=== PATIENT | male | born 1940 | race Caucasian/White ===

== ENCOUNTER 2017-11-28 11:12 | Emergency (ER) | payer MEDICARE, OTHER ==
[~2017-11-28] VITALS: Ht 177.8 cm; Wt 83.9 kg
[~2017-11-28 11:12] MED LIST: ALEN70; ALEN70 PO; AMIT50; ASPI81CH PO; Augmentin 875-1 EACH PO; CARBAMAZEPINE200 M2 PO; CASCARA SAGRADA; CHOL10002; CILO100 PO; CLOP75 PO; DESV50 PO; DICL75ER PO; FISH1000; GABA300 PO; HYDACE5 PO; HYDCHL25; HYDMOR2 PO; HYDR1TAB94 PO; IBUP800 PO; LEVFLO500 PO; LISI10 PO; LISI5 PO; LORA.5 PO; LORA1 PO; LUPRON; LUPRON DEPOT; METO25 PO; MULVITMINF PO; NABU750; Norco 5-325 Ta1 EACH PO; OMEP20ER; OMEP20ER PO; PANT20 PO; RAME8 PO; ROPI1 PO; RXSULTRIDS PO; SERT100; SIMV10 PO; SULTRIDS PO; TOCO400; TOLT4; TRAM50 PO; ZOLP10 PO
[2017-11-28] MEDS ORDERED: Acetaminophen-1 EAC1 PO (13:27)
== END 2017-11-28 14:08 | disposition home or self-care (01) ==
LOC: ER 11:12
DX: S06.9X9A Unspecified intracranial injury with loss of consciousness of unspecified duration, initial encounter (principal); S16.1XXA Strain of muscle, fascia and tendon at neck level, initial encounter; S39.012A Strain of muscle, fascia and tendon of lower back, initial encounter; I10 Essential (primary) hypertension; Z79.899 Other long term (current) drug therapy; Z79.82 Long term (current) use of aspirin; W18.30XA Fall on same level, unspecified, initial encounter
CPT/HCPCS: 36415; 70450; 72100; 72125; 93005; 93010; 99284

== ENCOUNTER 2018-06-01 16:02 | Inpatient (IN) | payer MEDICARE, OTHER ==
[~2018-06-01] VITALS: Ht 167.6 cm; Wt 88.8 kg
[~2018-06-01 16:02] MED LIST changes: +Acetaminophen-1 EAC1 PO
[2018-06-01 16:42] LABS: BASOPHILS ABSOLUTE AUTO 0.03 K/mm3 (0.00-0.23); BASOPHILS PERCENT AUTO 0 % (0-2); EOSINOPHILS ABSOLUTE AUTO 0.08 K/mm3 (0.00-0.68); EOSINOPHILS PERCENT AUTO 1 % (0-6); Hemoglobin 12.1 g/dL (13.5-17.5); IMMATURE GRAN ABSOLUTE AUTO 0.03 K/mm3 (0.00-0.10); IMMATURE GRAN PERCENT AUTO 0 % (0-1); LYMPHOCYTES ABSOLUTE AUTO 1.83 K/mm3 (0.84-5.20); LYMPHOCYTES PERCENT AUTO 17 % (21-46); MONOCYTES PERCENT AUTO 10 % (4-13); Mean Corpuscular HGB 30.2 pg (26.0-34.0); Mean Corpuscular HGB Conc 32.7 g/dL (31.5-36.5); Mean Corpuscular Volume 92 fL (80-100); Mean Platelet Volume 9.1 fL (9.1-12.4); NEUTROPHILS ABSOLUTE AUTO 7.68 K/mm3 (1.96-9.15); NEUTROPHILS PERCENT AUTO 72 % (41-73); Platelet Count 283 K/mm3 (150-400); RDW Coefficient Variation 14.5 % (11.7-14.2); RDW Standard Deviation 48.7 fL (35.1-46.3); Red Blood Cell Count 4.01 M/mm3 (4.30-5.90); White Blood Cell Count 10.75 K/mm3 (4.00-11.30)
[2018-06-01] MEDS ORDERED: RAME8 PO (16:48)
[2018-06-01] MEDS ORDERED: METTREX2.5 PO (16:49)
[2018-06-01] MEDS ORDERED: GABA300 PO (16:49)
[2018-06-01] MEDS ORDERED: MELO7.5 PO (16:49)
[2018-06-01] MEDS ORDERED: PANT20 PO (16:49)
[2018-06-01 17:14] LABS: Alanine Aminotransfer (ALT/SGP 22 U/L (12-78); Albumin, Blood 2.5 g/dL (3.4-5.0); Albumin/Globulin Ratio 0.5 (0.8-1.8); Alk Phos 85 U/L (50-136); Anion Gap 13 mmol/L (6-16); Aspartate Aminotrans (AST/SGOT 27 U/L (12-37); Bilirubin, Total 0.6 mg/dL (0.1-1.0); Blood Urea Nitrogen 8 mg/dL (8-24); Bun/Creatinine Ratio 11.4 (12.0-20.0); CO2, Blood 22 mmol/L (21-32); Calcium, Blood 7.3 mg/dL (8.5-10.1); Chloride, Blood 97 mmol/L (98-108); Glomerular Filtration Rate >60 (60-); Glucose, Blood 76 mg/dL (70-99); Potassium, Blood 3.9 mmol/L (3.5-5.5); Sodium, Blood 132 mmol/L (136-145); Total Protein, Blood 7.5 g/dL (6.4-8.2)
[2018-06-01] MEDS ORDERED: HYDR1TAB94 PO (21:23)
[2018-06-01] MEDS ORDERED: FOLI1 PO (21:30)
[2018-06-02 05:45] LABS: Hematocrit 31.1 % (37.0-53.0); Mean Corpuscular HGB 29.9 pg (26.0-34.0); Mean Corpuscular HGB Conc 32.2 g/dL (31.5-36.5); Mean Corpuscular Volume 93 fL (80-100); Platelet Count 199 K/mm3 (150-400); RDW Coefficient Variation 14.4 % (11.7-14.2); RDW Standard Deviation 48.5 fL (35.1-46.3); Red Blood Cell Count 3.35 M/mm3 (4.30-5.90)
[2018-06-02 05:59] LABS: International Normalized Ratio 1.08; Prothrombin Time Results 11.1 Sec (9.7-11.5)
[2018-06-02 06:03] LABS: Alanine Aminotransfer (ALT/SGP 20 U/L (12-78); Albumin, Blood 2.2 g/dL (3.4-5.0); Albumin/Globulin Ratio 0.6 (0.8-1.8); Alk Phos 61 U/L (50-136); Anion Gap 7 mmol/L (6-16); Aspartate Aminotrans (AST/SGOT 17 U/L (12-37); Bilirubin, Total 0.4 mg/dL (0.1-1.0); Blood Urea Nitrogen 11 mg/dL (8-24); Bun/Creatinine Ratio 10.8 (12.0-20.0); CO2, Blood 29 mmol/L (21-32); Calcium, Blood 7.7 mg/dL (8.5-10.1); Chloride, Blood 103 mmol/L (98-108); Creatinine, Blood 1.02 mg/dL (0.60-1.20); Globulin, Blood 3.6 g/dL (2.2-4.0); Glomerular Filtration Rate >60 (60-); Glucose, Blood 114 mg/dL (70-99); Potassium, Blood 3.8 mmol/L (3.5-5.5); Sodium, Blood 139 mmol/L (136-145); Total Protein, Blood 5.8 g/dL (6.4-8.2)
== END 2018-06-03 18:14 | disposition home or self-care (01) | DRG 392 ==
LOC: ER 16:02 → SURS 19:26
PROVIDERS: Nurse Practitioner Acute Care; Physician Assistant
DX: R10.31 Right lower quadrant pain (principal); E87.1 Hypo-osmolality and hyponatremia; C79.51 Secondary malignant neoplasm of bone; I25.10 Atherosclerotic heart disease of native coronary artery without angina pectoris; M06.9 Rheumatoid arthritis, unspecified; G25.81 Restless legs syndrome; I73.9 Peripheral vascular disease, unspecified; I10 Essential (primary) hypertension; K21.9 Gastro-esophageal reflux disease without esophagitis; Z95.5 Presence of coronary angioplasty implant and graft; E78.5 Hyperlipidemia, unspecified; Z85.46 Personal history of malignant neoplasm of prostate; R93.5 Abnormal findings on diagnostic imaging of other abdominal regions, including retroperitoneum
CPT/HCPCS: 36415; 80053; 83690; 85025; 85027; 85610; 93306; 96361; 96365; 96375; 96376; 99284-25; C9113; J0295; J1815; J2405; J2550; J7030; J7120

== ENCOUNTER 2018-06-08 09:18 | Day surgery (SDC) | payer MEDICARE, OTHER ==
[~2018-06-08] VITALS: Ht 167.6 cm; Wt 78.9 kg
[~2018-06-08 09:18] MED LIST changes: +FOLI1 PO; +MELO7.5 PO; +METTREX2.5 PO
[2018-07-07] MEDS ORDERED: Mobic15 MG PO (15:26)
[2018-07-07] MEDS ORDERED: BUDE.25 (15:26)
== END 2018-06-08 12:24 | disposition home or self-care (01) ==
LOC: ORSCSDS 09:18
PROVIDERS: Internal Medicine Gastroenterology
PROC: 0DBK8ZX Excision of Ascending Colon, Via Natural or Artificial Opening Endoscopic, Diagnostic (ICD-10-PCS; principal; 2018-06-08 11:15)
PROC: 0DBH8ZX Excision of Cecum, Via Natural or Artificial Opening Endoscopic, Diagnostic (ICD-10-PCS; principal; 2018-06-08 11:15)
PROC: 0DBP8ZX Excision of Rectum, Via Natural or Artificial Opening Endoscopic, Diagnostic (ICD-10-PCS; principal; 2018-06-08 11:15)
PROC: 0DBM8ZX Excision of Descending Colon, Via Natural or Artificial Opening Endoscopic, Diagnostic (ICD-10-PCS; principal; 2018-06-08 11:15)
DX: R93.5 Abnormal findings on diagnostic imaging of other abdominal regions, including retroperitoneum (principal); K92.1 Melena; C18.0 Malignant neoplasm of cecum; D12.4 Benign neoplasm of descending colon; K62.1 Rectal polyp; K64.8 Other hemorrhoids; R63.4 Abnormal weight loss; I10 Essential (primary) hypertension; I48.91 Unspecified atrial fibrillation; I25.2 Old myocardial infarction; G47.33 Obstructive sleep apnea (adult) (pediatric); Z79.899 Other long term (current) drug therapy; Z79.82 Long term (current) use of aspirin
CPT/HCPCS: 88305; J7120

== ENCOUNTER 2018-07-08 10:36 | Inpatient (IN) | payer MEDICARE, OTHER ==
[~2018-07-08] VITALS: Ht 167.6 cm; Wt 84.0 kg
[~2018-07-08 10:36] MED LIST changes: +BUDE.25; +Mobic15 MG PO
--- NOTE | 2018-07-13 07:10 | NUR ---
Ambulatory in Day Surgery History, Chart, Medications and Allergies reviewed before start of procedure.Patient confirms NPO status and agrees with scheduled surgery. Patient states colon prep results clear.PT DID NOT TAKE METOPROLOL THIS AM, LAST DOSE YESTERDAY. Patient reports completing Chlorhexadine shower X2 prior to admission to hospital.Surgical site prepped with 2% Chlorhexidine cloth wipe.
--- NOTE | 2018-07-13 13:22 | NUR ---
07/13/18 1322 Nicholas Douglas COUNT OFF BY ONE. ROOM SEARCHED. XRAY TAKEN. READ ALL CLEAR BY DR. ZAVALA RADIOLOGIST. ADRY FOUND PRIOR TO LEAVING ROOM.
[2018-07-14 04:22] LABS: BASOPHILS ABSOLUTE AUTO 0.02 K/mm3 (0.00-0.23); BASOPHILS PERCENT AUTO 0 % (0-2); EOSINOPHILS PERCENT AUTO 0 % (0-6); Hematocrit 30.8 % (37.0-53.0); IMMATURE GRAN ABSOLUTE AUTO 0.03 K/mm3 (0.00-0.10); IMMATURE GRAN PERCENT AUTO 0 % (0-1); LYMPHOCYTES ABSOLUTE AUTO 0.98 K/mm3 (0.84-5.20); LYMPHOCYTES PERCENT AUTO 10 % (21-46); MONOCYTES ABSOLUTE AUTO 0.77 K/mm3 (0.16-1.47); MONOCYTES PERCENT AUTO 8 % (4-13); Mean Corpuscular HGB 29.8 pg (26.0-34.0); Mean Corpuscular HGB Conc 32.5 g/dL (31.5-36.5); Mean Corpuscular Volume 92 fL (80-100); Mean Platelet Volume 8.5 fL (9.1-12.4); NEUTROPHILS ABSOLUTE AUTO 7.63 K/mm3 (1.96-9.15); NEUTROPHILS PERCENT AUTO 81 % (41-73); Platelet Count 196 K/mm3 (150-400); RDW Coefficient Variation 14.3 % (11.7-14.2); RDW Standard Deviation 47.4 fL (35.1-46.3); Red Blood Cell Count 3.36 M/mm3 (4.30-5.90); White Blood Cell Count 9.43 K/mm3 (4.00-11.30)
[2018-07-14 04:40] LABS: Anion Gap 4 mmol/L (6-16); Blood Urea Nitrogen 12 mg/dL (8-24); Bun/Creatinine Ratio 13.6 (12.0-20.0); CO2, Blood 29 mmol/L (21-32); Chloride, Blood 106 mmol/L (98-108); Creatinine, Blood 0.88 mg/dL (0.60-1.20); Glomerular Filtration Rate >60 (60-); Glucose, Blood 127 mg/dL (70-99); Potassium, Blood 4.8 mmol/L (3.5-5.5); Sodium, Blood 139 mmol/L (136-145)
--- NOTE | 2018-07-14 06:47 | NUR ---
SUMMARY PT WITH NO ACUTE CHANGES TONIGHT. MEDICATED PO FOR PAIN. CHRISTELLE REMAINS PATENT. NO NEW DRNG TO ABD DRSNGS.
--- NOTE | 2018-07-14 14:51 | NUR ---
Patient was in bed and alert with and son present in the room when I entered the patient's room. I introduced myself and was welcomed into their conversation. Patient told me of his many health battles, of the family struggles and the currnet concerns about the biopsy from the recent surgery. I conducted a life review, explored patient's belief system, reinforced helpful attitudes and practices, provided anxiety containment and provided prayer. Patient and family responded well to all interventios and displayed evidence of restored loco and elevated mood. Patient and family expressed gratitude for the time and care.
--- NOTE | 2018-07-14 18:05 | NUR ---
SUMMARY NO ACUTE CHANGES T/O SHIFT. PT TOLERATING REGULAR DIET. AMBULATED IN [facility] W/FWW. MEDICATED PER ORDERS FOR PAIN; PAIN WELL CONTROLLED PER EMAR. PLEASANT AND COOPERATIVE.
--- NOTE | 2018-07-14 22:00 | NUR ---
PT WITH NAUSEA ON ASSESS WHICH I TREATED WITH ZOFRAN IV PER ORDERS. PT HAD EMESIS X 1 OF APPEARING UNDIGESTED FOOD. ABD IS INCREASINGLY DISTENDED WITH PT REPORTED MINIMAL FLATUS PASSING AND NO BM. I CALLED DR ENGLAND AND RECEIVED ORDERS FOR NPO AND RESUME LR @ 75 ML/HR.
[2018-07-15 06:54] LABS: BASOPHILS ABSOLUTE AUTO 0.04 K/mm3 (0.00-0.23); BASOPHILS PERCENT AUTO 0 % (0-2); EOSINOPHILS ABSOLUTE AUTO 0.01 K/mm3 (0.00-0.68); EOSINOPHILS PERCENT AUTO 0 % (0-6); Hematocrit 39.6 % (37.0-53.0); IMMATURE GRAN ABSOLUTE AUTO 0.05 K/mm3 (0.00-0.10); IMMATURE GRAN PERCENT AUTO 0 % (0-1); LYMPHOCYTES ABSOLUTE AUTO 1.44 K/mm3 (0.84-5.20); LYMPHOCYTES PERCENT AUTO 11 % (21-46); MONOCYTES ABSOLUTE AUTO 0.86 K/mm3 (0.16-1.47); MONOCYTES PERCENT AUTO 7 % (4-13); Mean Corpuscular HGB Conc 32.8 g/dL (31.5-36.5); Mean Corpuscular Volume 91 fL (80-100); Mean Platelet Volume 8.7 fL (9.1-12.4); NEUTROPHILS ABSOLUTE AUTO 10.51 K/mm3 (1.96-9.15); NEUTROPHILS PERCENT AUTO 81 % (41-73); Platelet Count 273 K/mm3 (150-400); RDW Coefficient Variation 14.7 % (11.7-14.2); RDW Standard Deviation 48.8 fL (35.1-46.3); Red Blood Cell Count 4.34 M/mm3 (4.30-5.90); White Blood Cell Count 12.91 K/mm3 (4.00-11.30)
[2018-07-15 07:43] LABS: Anion Gap 7 mmol/L (6-16); Blood Urea Nitrogen 10 mg/dL (8-24); Bun/Creatinine Ratio 9.7 (12.0-20.0); CO2, Blood 30 mmol/L (21-32); Calcium, Blood 8.3 mg/dL (8.5-10.1); Chloride, Blood 101 mmol/L (98-108); Creatinine, Blood 1.03 mg/dL (0.60-1.20); Glomerular Filtration Rate >60 (60-); Glucose, Blood 150 mg/dL (70-99); Potassium, Blood 4.2 mmol/L (3.5-5.5); Sodium, Blood 138 mmol/L (136-145)
--- NOTE | 2018-07-15 08:40 | NUR ---
pt back from imaging
--- NOTE | 2018-07-15 11:36 | NUR ---
NG TUBE PLACEMENT PLACED 18F NG TUBE TO L NARES. AWAITING XR CONFIRMATION OF PLACEMENT. PT TOLERATED FAIR.
--- NOTE | 2018-07-15 17:35 | NUR ---
SUMMARY PT HAD NAUSEA AND EMESIS THIS AM. ABD CT SHOWED POSITIVE FOR ILEUS. 18F NG PLACED TO L NARES PER ORDERS. DRAINING DARK BROWN FLUID TO LIS. PT HAS DENIED NEED FOR PAIN MEDICATION. DECLINED ZOFRAN T/O SHIFT. PT C/O OF REFLUX THIS AFTERNOON. OBTAINED ORDERS FOR IV PROTONIX AND ADMINISTERED PER ORDERS. PT REPORTS NAUSEA AND REFLUX IMPROVED. IV FLUIDS INFUSING. BOURGEOIS DRAINING BRIGHT YELLOW FLUID. CALL LIGHT IN REACH.
[2018-07-16 04:10] LABS: BASOPHILS ABSOLUTE AUTO 0.03 K/mm3 (0.00-0.23); BASOPHILS PERCENT AUTO 0 % (0-2); EOSINOPHILS ABSOLUTE AUTO 0.04 K/mm3 (0.00-0.68); EOSINOPHILS PERCENT AUTO 0 % (0-6); Hematocrit 35.8 % (37.0-53.0); Hemoglobin 11.7 g/dL (13.5-17.5); IMMATURE GRAN ABSOLUTE AUTO 0.03 K/mm3 (0.00-0.10); IMMATURE GRAN PERCENT AUTO 0 % (0-1); LYMPHOCYTES ABSOLUTE AUTO 1.02 K/mm3 (0.84-5.20); LYMPHOCYTES PERCENT AUTO 10 % (21-46); MONOCYTES ABSOLUTE AUTO 0.83 K/mm3 (0.16-1.47); MONOCYTES PERCENT AUTO 8 % (4-13); Mean Corpuscular HGB 30.2 pg (26.0-34.0); Mean Corpuscular HGB Conc 32.7 g/dL (31.5-36.5); Mean Corpuscular Volume 92 fL (80-100); Mean Platelet Volume 8.9 fL (9.1-12.4); NEUTROPHILS ABSOLUTE AUTO 8.75 K/mm3 (1.96-9.15); NEUTROPHILS PERCENT AUTO 82 % (41-73); Platelet Count 233 K/mm3 (150-400); RDW Standard Deviation 50.2 fL (35.1-46.3); Red Blood Cell Count 3.88 M/mm3 (4.30-5.90)
[2018-07-16 04:32] LABS: Anion Gap 4 mmol/L (6-16); Blood Urea Nitrogen 11 mg/dL (8-24); Bun/Creatinine Ratio 11.6 (12.0-20.0); CO2, Blood 32 mmol/L (21-32); Calcium, Blood 8.1 mg/dL (8.5-10.1); Chloride, Blood 103 mmol/L (98-108); Creatinine, Blood 0.95 mg/dL (0.60-1.20); Glomerular Filtration Rate >60 (60-); Glucose, Blood 150 mg/dL (70-99); Magnesium, Blood 1.8 mg/dL (1.6-2.4); Phosphorus, Blood 3.6 mg/dL (2.5-4.9); Potassium, Blood 4.6 mmol/L (3.5-5.5); Sodium, Blood 139 mmol/L (136-145)
--- NOTE | 2018-07-16 04:50 | NUR ---
SHIFT SUMMARY PT A&O X4 T/O SHIFT. POD# 3 R HEMICOLECTOMY; DRESSINGS DRY AND INTACT; DRAINAGE TO UMBILICAL SITE UNCHANGES OVER SHIFT; ABD SOFT; BT X4; PT DENIES NAUSEA. NG SUCTION PER ORDERS, DARK BROWN OUTPUT. PT STS PAIN AT COMFORTABLE LEVEL; PT AWARE PAIN MEDICATION AVAILABLE WHEN DESIRED. PT REPOSITIONED T/O SHIFT. LS DIM IN BASES BILAT, O2 VIA NC. TELEMETRY IN PLACE; PER MONITOR SINUS AT RATE OF 80-LOW 100'S SCD'S TO BLE'S; PT DENIES CP AND SOB. BOURGEOIS PATENT. NPO WITH ORAL SPONGE AND ICE CHIPS BEDSIDE. CALL LIGHT IN REACH. WCTM UNTIL REPORT TO DAY SHIFT RN.
--- NOTE | 2018-07-16 18:19 | NUR ---
SHIFT SUMMARY POD 3 LAP COLECTOMY. LAP SITES C/D/I. NG TUBE WITH SCANT AMOUNT OF BROWN DRAINAGE-20ML. DENIES ANY NAUSEA THIS SHIFT. PAIN 2/10 MOST OF SHIFT, DECLINES PAIN MEDICATION. UP TO SIDE OF BED. REPORTS PASSING FLATUS. PLAN IS TO DC NG TUBE IN AM IF PT CONTINUES PASSING FLATUS AND HAS NO INCREASED DRAINAGE.
[2018-07-17 04:44] LABS: BASOPHILS ABSOLUTE AUTO 0.03 K/mm3 (0.00-0.23); BASOPHILS PERCENT AUTO 1 % (0-2); EOSINOPHILS ABSOLUTE AUTO 0.26 K/mm3 (0.00-0.68); EOSINOPHILS PERCENT AUTO 4 % (0-6); Hematocrit 31.8 % (37.0-53.0); Hemoglobin 10.1 g/dL (13.5-17.5); IMMATURE GRAN ABSOLUTE AUTO 0.01 K/mm3 (0.00-0.10); IMMATURE GRAN PERCENT AUTO 0 % (0-1); LYMPHOCYTES ABSOLUTE AUTO 1.06 K/mm3 (0.84-5.20); LYMPHOCYTES PERCENT AUTO 18 % (21-46); MONOCYTES ABSOLUTE AUTO 0.61 K/mm3 (0.16-1.47); MONOCYTES PERCENT AUTO 10 % (4-13); Mean Corpuscular HGB 29.6 pg (26.0-34.0); Mean Corpuscular HGB Conc 31.8 g/dL (31.5-36.5); Mean Corpuscular Volume 93 fL (80-100); Mean Platelet Volume 8.8 fL (9.1-12.4); NEUTROPHILS ABSOLUTE AUTO 4.03 K/mm3 (1.96-9.15); NEUTROPHILS PERCENT AUTO 67 % (41-73); Platelet Count 178 K/mm3 (150-400); RDW Coefficient Variation 14.8 % (11.7-14.2); RDW Standard Deviation 50.4 fL (35.1-46.3); Red Blood Cell Count 3.41 M/mm3 (4.30-5.90)
[2018-07-17 04:58] LABS: Anion Gap 4 mmol/L (6-16); Blood Urea Nitrogen 13 mg/dL (8-24); Bun/Creatinine Ratio 13.9 (12.0-20.0); CO2, Blood 32 mmol/L (21-32); Calcium, Blood 7.8 mg/dL (8.5-10.1); Chloride, Blood 105 mmol/L (98-108); Creatinine, Blood 0.93 mg/dL (0.60-1.20); Glomerular Filtration Rate >60 (60-); Glucose, Blood 102 mg/dL (70-99); Potassium, Blood 4.6 mmol/L (3.5-5.5); Sodium, Blood 141 mmol/L (136-145)
--- NOTE | 2018-07-17 07:33 | NUR ---
SHIFT SUMMARY PT A&O X4 T/O SHIFT. NG TO LOW INTERMIT SUCTION; BROWN OUTPUT SCANT, UNMEASURABLE. PT NPO, ICE CHIPS AT BEDSIDE. PT DENIES NAUSEA, ABD SOFT, BT X4; ABD SURG SITES CDI, OPEN TO AIR. PT ASSISTED WITH REPOSITIONING PRN. SCD'S TO BLE'S. PAIN MANGED PER EMAR. O2 VIA NC WEANED TO 0.5L; PT DENIES SOB AND CP. TELEMETRY IN PLACE; SR PER RETAIL LEASING AGENT. BOURGEOIS PATENT AND DRAINING WELL. CALL LIGHT IN REACH; PT DEMONSTRATES USE. REPORT GIVEN TO DAY SHIFT RN.
[2018-07-18 04:12] LABS: BASOPHILS ABSOLUTE AUTO 0.04 K/mm3 (0.00-0.23); BASOPHILS PERCENT AUTO 1 % (0-2); EOSINOPHILS ABSOLUTE AUTO 0.18 K/mm3 (0.00-0.68); EOSINOPHILS PERCENT AUTO 4 % (0-6); Hematocrit 29.9 % (37.0-53.0); Hemoglobin 9.6 g/dL (13.5-17.5); IMMATURE GRAN ABSOLUTE AUTO 0.01 K/mm3 (0.00-0.10); IMMATURE GRAN PERCENT AUTO 0 % (0-1); LYMPHOCYTES ABSOLUTE AUTO 1.01 K/mm3 (0.84-5.20); LYMPHOCYTES PERCENT AUTO 21 % (21-46); MONOCYTES ABSOLUTE AUTO 0.48 K/mm3 (0.16-1.47); MONOCYTES PERCENT AUTO 10 % (4-13); Mean Corpuscular HGB 29.9 pg (26.0-34.0); Mean Corpuscular HGB Conc 32.1 g/dL (31.5-36.5); Mean Corpuscular Volume 93 fL (80-100); Mean Platelet Volume 8.7 fL (9.1-12.4); NEUTROPHILS PERCENT AUTO 64 % (41-73); Platelet Count 174 K/mm3 (150-400); RDW Coefficient Variation 14.6 % (11.7-14.2); Red Blood Cell Count 3.21 M/mm3 (4.30-5.90); White Blood Cell Count 4.82 K/mm3 (4.00-11.30)
--- NOTE | 2018-07-18 04:49 | NUR ---
SHIFT SUMMARY PT A&O X4 T/O SHIFT. POD#5 DIANE-COLECTOMY; LAP SITES CDI, NO DRAINAGE OR REDNESS NOTED. ABD SOFT; BTX4; PT DENIES NAUSEA; REPORTS FLATUS; TOLERATING CLEAR DIET AND PO MEDICATIONS. RA; DENIES SOB AND CP; TELEMETRY IN PLACE, SR PER ORNAMENTAL IRONWORKER. PAIN MANGED PER EMAR. PT REPOSITIONED WITH ASSIT T/O SHIFT. SCD'S TO BLE'S. CALL LIGHT IN REACH; PT DEMONSTRATES USE. WCTM UNTIL REPORT TO DAY SHIFT RN.
[2018-07-18 05:10] LABS: Anion Gap 7 mmol/L (6-16); Blood Urea Nitrogen 13 mg/dL (8-24); CO2, Blood 29 mmol/L (21-32); Calcium, Blood 7.6 mg/dL (8.5-10.1); Chloride, Blood 103 mmol/L (98-108); Creatinine, Blood 0.87 mg/dL (0.60-1.20); Glomerular Filtration Rate >60 (60-); Glucose, Blood 100 mg/dL (70-99); Magnesium, Blood 2.1 mg/dL (1.6-2.4); Potassium, Blood 3.9 mmol/L (3.5-5.5); Sodium, Blood 139 mmol/L (136-145)
--- NOTE | 2018-07-18 10:56 | NUR ---
DECLINED AMBULATION PT ASKED TO BE BOOSTED UP IN BED. DECLINED AMBULATION AT THIS TIME, STATING WILL GO FOR WALK LATER. SPOUSE AT BEDSIDE.
--- NOTE | 2018-07-18 11:10 | NUR ---
DR HOWELL IN TO SEE PT.
--- NOTE | 2018-07-18 12:04 | NUR ---
Permission given to assist in patient care. Pt gave this nursing home assistant permission to work with him tomorrow on 07-19-2018. This nursing home assistant was also given permission to view his chart, shadow his nurse, and perform a head to toe assessment.
--- NOTE | 2018-07-18 17:18 | NUR ---
SUMMARY NO ACUTE CHANGES T/O SHIFT. PT HAS DENIED PAIN. SPOUSE STATES HAS NO APPETITE. ADVANCED TO REGULAR DIET TODAY. PT STATES TAKING SMALL AMOUNTS AT A TIME. AMBULATED IN [facility] W/SPOUSE. SLEPT OFF AND ON T/O SHIFT. PLEASANT AND COOPERATIVE.
--- NOTE | 2018-07-19 08:23 | NUR ---
SUMMARY PT WITH NO C/O NAUSEA TONIGHT. IV SL. PT HOPING TO GO HOME TODAY.
--- NOTE | 2018-07-19 10:59 | NUR ---
Patient was lying in bed bedside when I entered patient's room. Patient expressed his courtney of being able to go home mixed with some concern as he is facing chemotherapy treatments. I listened empathically, I provided pastoral child guidance counselor and encouragement, explored sources of meaning and loco and provided prayer. Patient and spouse responded well to interventions and showed signs of restored loco. Patient expressed gratitude for my visit.
--- NOTE | 2018-07-19 12:15 | NUR ---
DISCHARGE PT HAS DONE WELL TODAY. PAIN WELL MANAGED. HAD BM, TOLERATING DIET, VOIDED. SPOUSE AND PATIENT FEEL COMFORTABLE WITH D/C.
== END 2018-07-19 12:10 | disposition home or self-care (01) | DRG 330 ==
LOC: SURS 07-13 05:52 → PRE IP 07-13 07:30 → SURS 07-13 14:01
PROVIDERS: ADMIT Surgery
PROC: 0DTF4ZZ Resection of Right Large Intestine, Percutaneous Endoscopic Approach (ICD-10-PCS; principal; 2018-07-13 07:30)
DX: C18.0 Malignant neoplasm of cecum (principal); C79.51 Secondary malignant neoplasm of bone; K91.30 Postprocedural intestinal obstruction, unspecified as to partial versus complete; R32 Unspecified urinary incontinence; K21.9 Gastro-esophageal reflux disease without esophagitis; I10 Essential (primary) hypertension; I25.2 Old myocardial infarction; Z85.46 Personal history of malignant neoplasm of prostate; Z95.5 Presence of coronary angioplasty implant and graft; Z79.82 Long term (current) use of aspirin; Z79.02 Long term (current) use of antithrombotics/antiplatelets; Z79.899 Other long term (current) drug therapy; Z85.820 Personal history of malignant melanoma of skin; Z96.642 Presence of left artificial hip joint; Z92.3 Personal history of irradiation
CPT/HCPCS: 36415; 71045; 74018; 74177; 80048; 82947; 83735; 84100; 85025; 86850; 86900; 86901; 88304; 88309; 88313; 88342; C9113; J0295; J1100; J1170; J1650; J1885; J2370; J2405; J3010; J7120; Q9967

== ENCOUNTER 2018-07-19 20:03 | Emergency (ER) | payer MEDICARE, OTHER ==
[~2018-07-19] VITALS: Ht 167.6 cm; Wt 81.7 kg
== END 2018-07-19 21:08 | disposition home or self-care (01) ==
LOC: ER 20:03
DX: R33.8 Other retention of urine (principal); Z79.82 Long term (current) use of aspirin; Z79.899 Other long term (current) drug therapy; Z79.891 Long term (current) use of opiate analgesic; I10 Essential (primary) hypertension
CPT/HCPCS: 51702; 99283

== ENCOUNTER 2018-08-26 07:01 | Day surgery (SDC) | payer MEDICARE, OTHER ==
[~2018-08-26] VITALS: Ht 167.6 cm; Wt 79.7 kg
[~2018-08-26 07:01] MED LIST changes: +Aspir 8181 MG PO; +CEPH500 PO; +Cilostazol50 MG PO; +GABA600 PO; +Zocor20 MG PO
--- NOTE | 2018-08-26 07:58 | NUR ---
08/26/18 0758 Radha Navas DISCUSSED GENERAL DC INSTRUCTIONS WITH PT/FAMILY. BOTH DENY QUESTIONS. PT RESTING IN BED, BED IN LOWEST POSITION, CALL LIGHT IN REACH.
--- NOTE | 2018-08-26 09:04 | NUR ---
08/26/18 0904 Cee Ochoa A NEW IV STARTED TO LEFT HAND BY DR WILEY. RIGHT ARM IV DC'D WITH CATH INTACT. IV DID NOT APPEAR TO BE PATENT.
--- NOTE | 2018-08-26 10:33 | NUR ---
08/26/18 1033 Kay Mcnair 1018: IMAGING IS CALLED FOR XRAY 1025: IMAGING ARRIVES TO TAKE XRAY
== END 2018-08-26 11:22 | disposition home or self-care (01) ==
LOC: ORSCSDS 07:01
PROVIDERS: Surgery
PROC: 02HV33Z Insertion of Infusion Device into Superior Vena Cava, Percutaneous Approach (ICD-10-PCS; principal; 2018-08-26 08:30)
PROC: B5181ZA Fluoroscopy of Superior Vena Cava using Low Osmolar Contrast, Guidance (ICD-10-PCS; principal; 2018-08-26 08:30)
DX: C18.0 Malignant neoplasm of cecum (principal); I10 Essential (primary) hypertension; E78.00 Pure hypercholesterolemia, unspecified; I25.10 Atherosclerotic heart disease of native coronary artery without angina pectoris; Z79.899 Other long term (current) drug therapy; Z79.82 Long term (current) use of aspirin
CPT/HCPCS: 77001; C1751; C1788; J0690; J1642; J2250; J3010

== ENCOUNTER → 2018-09-08 | Outpatient (CLI) | payer MEDICARE, OTHER | END | disposition home or self-care (01) | LOC: LAB EV 14:05 → LAB SHORT 14:05 | DX: N39.0 Urinary tract infection, site not specified (principal) | CPT/HCPCS: 87077; 87086; 87186 ==

== ENCOUNTER 2018-10-20 05:47 | Emergency (ER) | payer MEDICARE, OTHER ==
[~2018-10-20] VITALS: Ht 167.6 cm; Wt 76.7 kg
[2018-10-20] MEDS ORDERED: METO10 PO (06:10)
[2018-10-20] MEDS ORDERED: Zofran8 MG PO (06:11)
[2018-10-20 06:39] LABS: Source, Urine Urostomy Bag
[2018-10-20 06:44] LABS: Appearance, Urine Cloudy (Clear); Bilirubin, Urine Neg (Neg); Blood, Urine 5+ (Neg); Color, Urine Yellow (P-Yellow); Glucose Qualitative, Urine 1+ (Neg); Ketones, Urine Neg (Neg); Leukocyte Esterase, Urine 3+ (Neg); Nitrite, Urine Pos (Neg); Protein, Urine 2+ (Neg); Urobilinogen, Urine NORM (Normal)
[2018-10-20 06:54] LABS: White Blood Cells, Urine TNTC /hpf (0-5)
[2018-10-20 06:55] LABS: Bacteria Many /hpf; Squamous Epithelial Cells Rare /hpf (Few)
[2018-10-20] MEDS ORDERED: CEFP200 PO (07:10)
== END 2018-10-20 07:26 | disposition home or self-care (01) ==
LOC: ER 05:47
PROVIDERS: Emergency Medicine
DX: T83.098A Other mechanical complication of other urinary catheter, initial encounter (principal); N39.0 Urinary tract infection, site not specified; I10 Essential (primary) hypertension; Z79.82 Long term (current) use of aspirin; Z79.899 Other long term (current) drug therapy; Z85.46 Personal history of malignant neoplasm of prostate
CPT/HCPCS: 51702; 51798; 81001; 87077; 87086; 87186; 99283-25

== ENCOUNTER 2018-11-06 06:33 | Emergency (ER) | payer MEDICARE, OTHER ==
[~2018-11-06] VITALS: Ht 167.6 cm; Wt 74.8 kg
[~2018-11-06 06:33] MED LIST changes: +CEFP200 PO; +METO10 PO; +Zofran8 MG PO
[2018-11-06] MEDS ORDERED: CLOP75 PO (06:56)
[2018-11-06] MEDS ORDERED: DESV50 PO (06:57)
[2018-11-06] MEDS ORDERED: Ropinirole HCl1 MG PO (06:57)
[2018-11-06] MEDS ORDERED: PANT20 PO (06:58)
[2018-11-06] MEDS ORDERED: Zocor20 MG PO (06:58)
[2018-11-06] MEDS ORDERED: GABA300 PO (07:00)
== END 2018-11-06 09:09 | disposition short-term general hospital (02) ==
LOC: ER 06:33
DX: R33.9 Retention of urine, unspecified (principal); Z79.899 Other long term (current) drug therapy; Z79.82 Long term (current) use of aspirin; I10 Essential (primary) hypertension; Z85.46 Personal history of malignant neoplasm of prostate; Z85.038 Personal history of other malignant neoplasm of large intestine
CPT/HCPCS: 51798; 99284-25

== ENCOUNTER → 2019-03-24 | Outpatient (CLI) | payer MEDICARE, OTHER ==
[~2019-03-24] MED LIST changes: +Ropinirole HCl1 MG PO
[2019-03-24 11:41] LABS: Source, Urine Clean Catch
[2019-03-24 12:38] LABS: Bilirubin, Urine Neg (Neg); Blood, Urine 2+ (Neg); Glucose Qualitative, Urine 2+ (Neg); Ketones, Urine Neg (Neg); Leukocyte Esterase, Urine 3+ (Neg); Nitrite, Urine Pos (Neg); Protein, Urine 3+ (Neg); Specific Gravity, Urine 1.015 (1.003-1.022); Urobilinogen, Urine NORM (Normal)
[2019-03-24 12:53] LABS: Appearance, Urine Cloudy (Clear); Color, Urine Yellow (P-Yellow)
[2019-03-24 12:54] LABS: Bacteria Many /hpf; Squamous Epithelial Cells Few /hpf (Few)
== END | disposition home or self-care (01) ==
LOC: LAB 10:50 → LAB SHORT 10:50
PROVIDERS: Internal Medicine
DX: N39.0 Urinary tract infection, site not specified (principal)
CPT/HCPCS: 81001; 87086

== ENCOUNTER 2019-07-05 00:13 | Day surgery (SDC) | payer MEDICARE, OTHER | END 2019-07-05 08:30 | disposition home or self-care (01) | LOC: ATC 00:13 | DX: C61 Malignant neoplasm of prostate (principal); R33.8 Other retention of urine; C18.9 Malignant neoplasm of colon, unspecified; M06.9 Rheumatoid arthritis, unspecified; I10 Essential (primary) hypertension; G47.00 Insomnia, unspecified; M81.0 Age-related osteoporosis without current pathological fracture; I25.2 Old myocardial infarction; E78.5 Hyperlipidemia, unspecified; F32.9 Major depressive disorder, single episode, unspecified; F41.9 Anxiety disorder, unspecified; K21.9 Gastro-esophageal reflux disease without esophagitis; I25.10 Atherosclerotic heart disease of native coronary artery without angina pectoris; G47.33 Obstructive sleep apnea (adult) (pediatric); Z79.82 Long term (current) use of aspirin; Z79.02 Long term (current) use of antithrombotics/antiplatelets; Z79.899 Other long term (current) drug therapy | CPT/HCPCS: 51705 ==

== ENCOUNTER → 2019-08-29 | Outpatient (CLI) | payer MEDICARE, OTHER ==
[~2019-08-29] MED LIST changes: +Crestor40 MG PO
[2019-08-30 15:17] LABS: Adenovirus F 40/41 Not Detected (NOT DETECT); Astrovirus Not Detected (NOT DETECT); Campylobacter Sp Not Detected (NOT DETECT); Cryptosporidium Not Detected (NOT DETECT); Cyclospora Cayetanensis Not Detected (NOT DETECT); E. Coli O157 Not Detected (NOT DETECT); Entamoeba Histolytica Not Detected (NOT DETECT); Enteroaggregative E. coli-EAEC Not Detected (NOT DETECT); Enteropathogenic E. coli-EPEC Not Detected (NOT DETECT); Enterotoxigenic E. coli-ETEC Not Detected (NOT DETECT); Giardia Lamblia Not Detected (NOT DETECT); Norovirus GI/GII Not Detected (NOT DETECT); Plesiomonas Shigelloides Not Detected (NOT DETECT); Rotavirus A Not Detected (NOT DETECT); Salmonella Sp Not Detected (NOT DETECT); Sapovirus Not Detected (NOT DETECT); Shiga Toxin-prod E. coli-STEC Not Detected (NOT DETECT); Shigella/Enteroin E. coli-EIEC Not Detected (NOT DETECT); Vibrio Cholerae Not Detected (NOT DETECT); Vibrio Sp Not Detected (NOT DETECT); Yersinia Enterocolitica Not Detected (NOT DETECT)
== END | disposition home or self-care (01) ==
LOC: LAB SHORT 12:45 → OLS 12:45 → LAB FUT 08-27 16:40
PROVIDERS: Internal Medicine
DX: R19.7 Diarrhea, unspecified (principal)
CPT/HCPCS: 0097U

== ENCOUNTER → 2020-01-11 | Outpatient (CLI) | payer MEDICARE, OTHER ==
[2020-01-11 17:19] LABS: Bilirubin, Urine Neg (Neg); Blood, Urine 3+ (Neg); Glucose Qualitative, Urine Neg (Neg); Ketones, Urine Neg (Neg); Leukocyte Esterase, Urine 3+ (Neg); Nitrite, Urine Pos (Neg); Protein, Urine 3+ (Neg); Urobilinogen, Urine NORM (Normal); pH, Urine 6.5 (5.0-8.0)
[2020-01-11 17:26] LABS: Appearance, Urine Cloudy (Clear); Color, Urine Yellow (P-Yellow); White Blood Cells, Urine TNTC /hpf (0-5)
[2020-01-11 17:27] LABS: Bacteria Many /hpf; Squamous Epithelial Cells Few /hpf (Few)
== END | disposition home or self-care (01) ==
LOC: LAB 13:30 → LAB SHORT 13:30 → LAB FUT 10-25 13:10
PROVIDERS: Internal Medicine
DX: N39.0 Urinary tract infection, site not specified (principal)
CPT/HCPCS: 81001; 87077; 87086; 87186